=== PATIENT | female | born 1960 | race Caucasian/White ===

== ENCOUNTER → 2023-04-02 | Outpatient (CLI) | payer BC | END | disposition home or self-care (01) | LOC: RAH 09:39 | PROVIDERS: ATTEND Family Medicine Sports Medicine | DX: Z12.31 Encounter for screening mammogram for malignant neoplasm of breast (principal) | CPT/HCPCS: 77067 ==

== ENCOUNTER → 2023-06-18 | Outpatient (CLI) | payer BC | END | disposition home or self-care (01) | LOC: RAH 14:41 | PROVIDERS: ATTEND Family Medicine Sports Medicine | DX: Z13.820 Encounter for screening for osteoporosis (principal); M85.88 Other specified disorders of bone density and structure, other site | CPT/HCPCS: 77080 ==